=== PATIENT | male | born 1985 | race Two or more races ===

== ENCOUNTER 2024-12-29 18:28 | Emergency (ER) | payer MEDICAID, OTHER ==
[~2024-12-29] VITALS: Ht 167.6 cm; Wt 73.1 kg
--- NOTE | 2024-12-29 18:41 | ED.PDOC ---
HPI (NEURO) Time Seen by MD: 18:39 Reviewed Notes: Nurses Notes, Medications, Allergies Information Source: Patient Past Medical History PAST MEDICAL HISTORY: DM, Denies Past Medical History (Other): MIGRAINES Surgical History: Denies all surgeries Constitutional: denies: chills, diaphoresis, fatigue, fever, malaise, sweats, weakness, others EENTM: denies: blurred vision, double vision, ear bleeding, ear discharge, ear drainage, ear pain, ear ringing, eye pain, eye redness, hearing loss, mouth pain, mouth swelling, nasal discharge, nose bleeding, nose congestion, nose pain, photophobia, tearing, throat pain, throat swelling, voice changes, others Respiratory: denies: cough, hemoptysis, orthopnea, SOB at rest, shortness of breath, SOB with excertion, stridor, wheezing, others Cardiovascular: denies: chest pain, dizzy spells, diaphoresis, Dyspnea on exertion, edema, irregular heart beat, left arm pain, lightheadedness, palpitations, PND, syncope, others Gastrointestinal: denies: abdomen distended, abdominal pain, blood streaked bowels, constipated, diarrhea, dysphagia, difficulty swallowing, hematemesis, melena, nausea, poor appetite, poor fluid intake, rectal bleeding, rectal pain, vomiting, others Genitourinary: denies: burning, dysuria, flank pain, frequency, hematuria, incontinence, penile discharge, penile sore, pain, testicle pain, testicle swelling, urgency, others Neurological: reports: headache; denies: dizziness, fainting, left sided numbness, left sided weakness, numbness, paresthesia, pre-existing deficit, right sided numbness, right sided weakness, seizure, speech problems, tingling, tremors, weakness, others Musculoskeletal: denies: back pain, gout, joint pain, joint swelling, muscle pain, muscle stiffness, neck pain, others Integumetry: denies: bruises, change in color, change in hair/nails, dryness, laceration, lesions, lumps, rash, wounds, others Allergic/Immunocompromised: denies: Difficulty Healing, Frequent Infections, Hives, Itching, others Hematologic/Lymphatic: denies: anemia, blood clots, easy bleeding, easy bruising, swollen glands, others Endocrine: denies: excessive hunger, excessive sweating, excessive thirst, excessive urination, flushing, intolerance to cold, intolerance to heat, unexplained weight gain, unexplained weight loss, others Psychiatric: denies: anxiety, bipolar disorder, depression, hopeless, panic disorder, schizophrenia, sleepless, suicidal, others Physical Exam General Appearance: No Apparent Distress, Normal HEENT: Normal ENT Inspection, Pharynx Normal, TMs Normal Neck: Full Range of Motion, Non-Tender Respiratory: Lungs Clear, No Respiratory Distress, Normal Breath Sounds Cardiovascular: No Edema, No JVD, No Murmur, No Gallop, Normal Peripheral Pul ses, Regular Rate/Rhythm Breast Exam: Deferred Gastrointestinal: No Organomegaly, Non Tender, No Pulsatile Mass, Normal Bowel Sounds, Soft Genitalia: Deferred Pelvic: Deferred Rectal: Deferred Extremities: Normal capillary refill, Normal inspection, Normal range of motion, Non-tender, No pedal edema Musculoskeletal : Apperance: Normal Neurologic: Alert, roll handler II-XII nml as Tested, No Motor Deficits, Normal Affect, Normal Mood, No Sensory Deficits Cerebellar Function: Normal Reflexes: Normal Skin: Dry, Normal Color, Warm Lymphatic: No Adenopathy Was a procedure done? Was a procedure done?: No Differential Diagnosis (SZ) Headache: Cluster, Migraine, Epidural Hemorrhage, Intracerebral Hemorrhage, Subarachnoid Hemorrhage, Mass Lesion X-Ray, Labs, Meds, VS Vital Signs Date Time Temp Pulse Resp B/P (MAP) Pulse Ox O2 Delivery O2 Flow Rate FiO2 12/29/24 22:26 86 14 98 Room Air* 0 21 12/29/24 20:58 98.5 86 14 148/78 (101) 98 98.5 12/29/24 18:35 98.2 90 16 154/86 (108) 98 98.2 Lab Test 12/29/24 22:52 12/29/24 18:41 Range/Units POC Glucose 145 H 233 H 70-106 mg/dl Current Medications Medications (Trade) Dose Ordered Sig/Muna Route Start Time Stop Time Status Last Admin Sodium Chloride 1,000 ml @ 1,000 mls/hr Q1H ONCE IV 12/29/24 18:45 12/29/24 19:44 DC 12/29/24 22:18 Prochlorperazine Edisylate (Compazine Inj) 5 mg ONCE ONCE IV 12/29/24 18:45 12/29/24 18:46 DC 12/29/24 22:18 Dexamethasone Sodium Phosphate (Decadron Injection) 10 mg ONCE ONCE IV 12/29/24 18:45 12/29/24 18:46 DC 12/29/24 22:17 Ketorolac Tromethamine (Toradol Injection) 15 mg ONCE ONCE IV 12/29/24 18:45 12/29/24 18:46 DC 12/29/24 22:18 Acetaminophen (Tylenol Tablet Or Capsule) 500 mg ONCE ONCE PO 12/29/24 18:45 12/29/24 18:46 DC 12/29/24 22:18 Time of 1ST Reevaluation: 18:40 Reevaluation 1ST: Unchanged Time of 2ND Reevaluation: 23:06 Reevaluation 2ND: Improved Patient Education/Counseling: Diagnosis, Treatment, Prognosis, Need For Follow Up Family Education/Counseling: No Family Present Departure 1 Departure Time of Disposition: 23:06 Impression: Primary Impression: Headache Qualified Codes: G44.209 - Tension-type headache, unspecified, not intractable Disposition: 01 HOME / SELF CARE / HOMELESS Condition: Stable Discharged With: Self Critical Care Note Critical Care Time?: No Stability Stability form required: DEVAUGHN Griffin December 29, 2024 18:41
[2024-12-29 20:58] VITALS: TEMP 98.5
[2024-12-29] MEDS: DexAMETHasone SOD PHOS 10MG/1ML VIAL INJ IV ONE (22:17)
[2024-12-29] MEDS: PROCHLORPERAZINE EDISYLATE 5 MG/ML 2ML VIAL IV ONE (22:18)
[2024-12-29] MEDS: KETOROLAC TROMETH 30 MG/ML 1ML VIAL IV ONE (22:18)
[2024-12-29] MEDS: SODIUM CHLORIDE 0.9% 1,000 ML IV ONE (22:18)
[2024-12-29] MEDS: ACETAMINOPHEN 500 MG TAB or CAP PO ONE (22:18)
[2024-12-29 22:26] VITALS: PULSE 86; RESP 14; O2SAT 98
[2024-12-29] MEDS: SUMAtriptan SUCCINATE 6 MG/0.5 ML VL SC ONE (23:07)
[2024-12-29 23:08] VITALS: BP 137/80; PULSE 84; RESP 14; O2SAT 98
== END 2024-12-29 23:16 | disposition home or self-care (01) ==
LOC: ER 18:28
DX: G43.909 Migraine, unspecified, not intractable, without status migrainosus (principal); E11.9 Type 2 diabetes mellitus without complications
CPT/HCPCS: 82947; 96361; 96374; 96375; 99284; J0780; J1100; J1885; J7030; 82962